=== PATIENT | female | born 1945 | race Caucasian/White ===

== ENCOUNTER 2017-05-14 14:14 | Day surgery (SDC) | payer OTHER, MEDICARE ==
[2017-05-14] MEDS ORDERED: LIDOCAINE 1% 2 ML INJ ONE (14:31)
[2017-05-14] MEDS ORDERED: ceFAZolin 2 GM/DEXTROSE 100 ML IV ONE (14:35)
[2017-05-14] MEDS ORDERED: LR 1,000 ML IV ONE (14:35)
[2017-05-14] MEDS ORDERED: LIDOCAINE 1% 2 ML INJ ID PRN (14:35)
[2017-05-14] MEDS ORDERED: BUPIVACAINE 0.5% 30 ML SDV ONE ×2 (15:45→15:55)
[2017-05-14] MEDS ORDERED: MIDAZOLAM 2 MG/2 ML VIAL IVP ONE (15:49)
--- NOTE | 2017-05-14 15:49 | PDHPUP ---
History & Physical Update H&P update statement: This history and physical update is based on an assessment of the patient which was completed after admission or registration (within 24 hours), but prior to the surgery/procedure. H&P update: H&P reviewed & patient examined, no change in patient's condition since H&P completed
--- NOTE | 2017-05-14 15:52 | PDANEPAE ---
ANE History of Present Illness 72 year old with bilateral bunions ANE Past Medical History - Cardiovascular History Hx Hypertension: No Hx Arrhythmias: No Hx Chest Pain: No Hx Coronary Artery / Peripheral Vascular Disease: No Hx CHF / Valvular Disease: No Hx Palpitations: No Cardiovascular History Comment: SLIGHT HEART MURMUR - ASYMPTOMATIC - Pulmonary History Hx COPD: No Hx Asthma/Reactive Airway Disease: No Hx Recent Upper Respiratory Infection: No Hx Oxygen in Use at Home: No Hx Sleep Apnea: No Sleep Apnea Screening Result - Last Documented: Positive Pulmonary History Comment: BRONCHITIS A FEW TIMES. PNEUMONIA IN TEENS - Neurologic History Hx Cerebrovascular Accident: No Hx Seizures: No Hx Dementia: No - Endocrine History Hx Diabetes: No - Renal History Hx Renal Disorders: No Renal History Comment: OCCAS UTIs - Liver History Hx Hepatic Disorders: No - Neurological & Psychiatric Hx Hx Neurological and Psychiatric Disorders: No - Cancer History Hx Cancer: No Cancer History Comment: BASAL CELL REMOVED - Congenital Disorder History Hx Congenital Disorders: No - GI History Hx Gastrointestinal Disorders: No - Other Health History Other Health History: NEG - Chronic Pain History Chronic Pain: Yes (UCHE FEET) - Surgical History Prior Surgeries: EYELIDS CORRECTED ANE Review of Systems Review of systems is: negative Review of Systems: - Exercise capacity METS (RN): 4 METS ANE Patient History - Allergies Allergies/Adverse Reactions: No Known Allergies Allergy (Unverified 05/08/17 12:50) - Home Medications Home Medications: Gabapentin 05/08/17 [Last Taken 05/13/17] Herbals/Supplements -Info Only 05/08/17 [Last Taken 05/13/17] Premarin Vaginal (*) 05/08/17 [Last Taken Unknown] Zyrtec 05/08/17 [Last Taken 05/13/17] - NPO status NPO Since - Liquids (Date): 05/13/17 NPO Since - Liquids (Time): 23:00 NPO Since - Solids (Date): 05/13/17 NPO Since - Solids (Time): 23:30 - Anes Hx Anes Hx: no prior problems - Smoking Hx Smoking Status: Never smoked - Alcohol Use Alcohol Use: Occasionally - Family Anes Hx Family Hx Anesthesia Complications: 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
[2017-05-14] MEDS ORDERED: PROPOFOL/EMULSION 500 MG/50 ML BOTTLE IV ONE ×2 (16:08→17:55)
[2017-05-14] MEDS ORDERED: fentaNYL 100 MCG/2 ML INJ ONE ×2 (16:08→17:55)
[2017-05-14] MEDS ORDERED: DEXAMETHASONE 10 MG/ML VIAL ONE (17:00)
[2017-05-14] MEDS ORDERED: ONDANSETRON 4 MG/2 ML VIAL IVP PRN ×2 (18:43→18:49)
[2017-05-14] MEDS ORDERED: ONDANSETRON DISINTEGRATING 4 MG TAB PO PRN (18:43)
[2017-05-14] MEDS ORDERED: OXYCODONE/APAP 5/325 TAB PO PRN (18:43)
[2017-05-14] MEDS ORDERED: HYDROCODONE/APAP 5/325 TAB PO PRN (18:49)
[2017-05-14] MEDS ORDERED: fentaNYL 100 MCG/2 ML INJ IVP PRN (18:49)
[2017-05-14] MEDS ORDERED: HYDROmorphONE/DILAUDID 1 MG/ML INJ IVP PRN (18:49)
[2017-05-14] MEDS ORDERED: NALOXONE HCL 0.4 MG/ML INJ IVP PRN (18:49)
--- NOTE | 2017-05-14 18:51 | POSTANESTH ---
Post Anesthetic Evaluation Cardiovascular Status: Normal, Stable Respiratory Status: Normal, Stable Level of Consciousness/Mental Status: Can Participate in Eval, Mildly Sleepy, Arousable Pain Control: Adequate, Prn Tx Ordered Nausea/Vomiting Control: Adequate, Prn Tx Ordered Complications Possibly Related to Anesthesia: None Noted
[2017-05-14 18:58] VITALS: TEMP 97.5
[2017-05-14 19:34] VITALS: BP 120/80; PULSE 64; RESP 14; O2SAT 95
--- NOTE | 2017-05-15 16:24 | GOP ---
[f rep st] OPERATIVE REPORT DATE OF OPERATION: 05/14/2017 SURGEON: Andrew Moura DPM ROUSTABOUT: None. ANESTHESIA: MAC with local, 30 mL 0.5% Marcaine plain, each foot. PREOPERATIVE DIAGNOSIS: 1. Hallux valgus bilaterally. 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 4. Interdigital neuroma, bilateral feet. 5. Dislocation, 2nd metatarsophalangeal joint, bilateral feet. 6. Metatarsalgia, 2nd metatarsal, bilateral feet. 7. Damage of flexor tendon complex, bilateral feet. 8. Transient synovitis, bilateral feet. POSTOPERATIVE DIAGNOSIS: 1. Hallux valgus bilaterally. 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 4. Interdigital neuroma, bilateral feet. 5. Dislocation, 2nd metatarsophalangeal joint, bilateral feet. 6. Metatarsalgia, 2nd metatarsal, bilateral feet. 7. Damage of flexor tendon complex, bilateral feet. 8. Transient synovitis, bilateral feet. PROCEDURE PERFORMED: 1. Bunionectomy, bilateral feet. 2. 1st metatarsal osteotomy with bone graft, bilateral feet. 3. Osteotomy of 1st proximal phalanx, bilateral feet. 4. Osteotomy of 2nd metatarsal, bilateral feet. 5. Open reduction of dislocation, 2nd metatarsophalangeal joint, bilateral feet. 6. Repair of flexor tendon, 2nd digit, bilateral feet. 7. Transfer of flexor tendon, 2nd digit, bilateral feet. 8. Extensor tendon lengthening, 2nd digit, bilateral feet. 9. Excision of interdigital neuroma, 3rd intermetatarsal space, left foot. 10. Arthrocentesis, bilateral feet. FINDINGS: Gross findings consistent with diagnosis. ESTIMATED BLOOD LOSS: Zero. DESCRIPTION OF PROCEDURE: After identification, the patient was brought to the operating room and pl aced on the operating table in the supine position. Following IV sedation, local anesthesia was obta ined around the patient's bilateral feet, utilizing a total of 60 mL of 0.5% Marcaine plain. The pat ient was scrubbed, prepped, and draped in the usual aseptic manner. Pneumatic ankle tourniquets were placed around the bilateral ankles using ample padding. Attention was first directed to the right foot, where a 5 cm linear longitudinal incision was made at the medial aspect of the 1st metatarsophalangeal joint. This incision was deepened within the subcu taneous tissue, with care being taken to identify and retract all vital neural and vascular structure s. Bleeders were ligated and cauterized as necessary. The incision was deepened to the level of the capsule, where a lenticular capsulorrhaphy was performed. The lenticular piece of capsule was excis ed and passed from the operative field. Capsular structures were reflected dorsally and plantarly, t hus exposing the 1st metatarsophalangeal joint at the operative site. A McGlamry elevator was insert ed from medial to lateral in the 1st metatarsophalangeal joint, which served as a lateral ligamentous release. Upon completion of this release, the hallux was noted to be more translatable into a media l and anatomic position. Attention was then directed to the 1st metatarsal, where a Z-shaped SCARF osteotomy was made from med ial to lateral in the 1st metatarsal head, neck, and shaft. Upon completion of this osapsgh-wqk-sjir ugh osteotomy, the capital fragment was translated laterally into a more rectus and anatomic position . After temporary fixation, two 2.5 headless Arthrex screws were driven obliquely across this osteot martha site to serve as stable fixation. Redundant medial bone shelf was excised, remodeled, and a port ion of this bone was reinserted into the osteotomy site to serve as a bone graft. All rough edges we re then smoothed with a bone bur. Position was evaluated, and the hallux was still noted to be in a lateral position. It was decided at this time to perform an Rene osteotomy in the 1st proximal phala nx. This medially based wedge osteotomy was performed in the base proximal aspect of the 1st proxima l phalangeal base. Upon completion of this osteotomy, the bone wedge was removed, the lateral cortex remained intact, and upon closure of this osteotomy side, the hallux was translated into a more medi al and rectus position on the 1st metatarsal. A 2.5 headless Arthrex screw was driven obliquely acro ss the osteotomy site to serve as stable fixation. Position was evaluated at this time and noted to be excellent; fixation is noted to be extremely stable and appropriate. This incision was flushed wi th normal sterile saline solution. The capsular structures were reapproximated by using 2-0 Vicryl, subcutaneous tissue reapproximated by using 3-0 Vicryl, skin reapproximated using 5-0 Vicryl in a run pedro subcuticular suture technique. Attention was then directed to the 2nd metatarsophalangeal joint of the right foot, were a 4 cm linea r longitudinal incision was made over the dorsal aspect of the 2nd metatarsophalangeal joint. This i ncision was deepened to the subcutaneous tissue, with care being taken to identify and retract all vi teodoro neural and vascular structures. Bleeders were ligated and cauterized as necessary. This incisio n was deepened to the level of the joint capsule, where a linear capsulotomy was performed. The caps ular structures were reflected medially and laterally, thus exposing the 2nd metatarsophalangeal join t at the operative site. A McGlamry elevator was then inserted from distal to proximal in the 2nd me tatarsophalangeal joint to serve as a soft tissue release. A Gwen metatarsal osteotomy was performed from dorsal-distal to plantar-proximal in the 2nd metatarsal head shaft in the head, neck, and shaft . Upon completion of this epkcxkr-qda-uqowhuh osteotomy, the capital fragment was shifted proximally , thus exposing exposure to the plantar aspect of the 2nd metatarsophalangeal joint. The 2nd metatarsophalangeal joint was explored at this time, and it was noted that an approximately 4 0% tear of the lateral aspect of the plantar plate is present. This rupture was completed, and flexo r tendons were evaluated. Partial tearing of the flexor tendons was noted. Flexor tendons are direc tly repaired with 2-0 Vicryl. The flexor tendon and plantar plate structure were then gathered with a suture-gathering instrument; 0 FiberWire was passed through the flexor tendons and plantar plate st ructures, which were gathered; FiberWire sutures passed through, crossing drill holes in the base of the 2nd proximal phalanx; sutures were tied, which have approximated the plantar plate structure and flexor tendon structure to the base of the proximal phalanx of the 2nd digit. This serves as a plant ar plate repair and a flexor tendon transfer. The 2nd metatarsal head was then brought back out to [facility], secured in a 1 to 2 mm shortened position with a 2.0 headless snap-off Arthrex screw. Fixatio n is noted to be stable at this time. Position of the 2nd toe is noted to be extremely stable at thi s time. The incision was then flushed with normal sterile saline solution. Capsular structures were reapproximated by using 2-0 Vicryl, subcutaneous tissue reapproximated with 3-0 Vicryl, skin reappro ximated using 5-0 Vicryl in a running subcuticular suture technique. Attention was then directed to the 4th intermetatarsal space of the right foot. A 3 cm linear longit udinal incision was made over this dorsal aspect of the 4th intermetatarsal space. This incision was deepened to the subcutaneous tissue, with care being taken to identify and retract all vital neural and vascular structures. Bleeders were ligated and cauterized as necessary. This 4th intermetatarsa l space was evaluated, and no nerve lesion or neuroma was found. There was a hypertrophic muscle bel ly located within this area, which seems to be impinging on soft tissue and bone structures. A porti on of this muscle belly was excised and passed from the operative field. Incision was flushed with n ormal sterile saline solution. Subcutaneous tissue reapproximated with 3-0 Vicryl and skin reapproxi mated using 5-0 Vicryl in a running subcuticular suture technique. These incisions were then dressed with Steri-Strips, Milton silk, 4 x 4 gauze, Webril, Saad, Emir bandage. The pneumatic ankle tourniqu et was then deflated. Attention was then directed to the left foot. On the left foot, an identical procedure was performed as was on the right. The only omission to thi s procedure was the excision of neuroma/redundant muscle belly in the 4th intermetatarsal space. The re is one addition to this procedure, and that is an excision of neuroma from the 3rd intermetatarsal space, left foot. Attention was directed to the dorsal aspect of the left foot, where a 3 cm linear longitudinal incision was made over the 3rd intermetatarsal space. This incision was deepened throu gh the subcutaneous tissue, with care being taken to identify and retract all vital neural and vascul ar structures. Bleeders were ligated and cauterized as necessary. Incision was deepened to the leve l of the intermetatarsal space, where an intermetatarsal neuroma was identified, resected, passed fro m the operative field, and will be sent to Pathology. No further irregular nerve of soft tissue is n oted within this intermetatarsal space. The space was then flushed with normal sterile saline soluti on. The subcutaneous tissues were reapproximated using 3-0 Vicryl, skin reapproximated using 5-0 Reynaldo ryl in a running subcuticular suture technique. At the conclusion of these procedures, 4 mg dexamethasone was injected into each foot at the 1st meta tarsophalangeal joint. The left foot was then dressed with Milton silk, 4 x 4 gauze, Webril, Saad, Ac e bandage. The patient was transported to the postoperative recovery area with vital signs stable an d vascular status intact to the foot bilaterally. The patient tolerated the procedure and anesthesia well. HEMOSTASIS: Bilateral pneumatic ankle tourniquet, inflated to 250 mmHg, for 63 minutes, right foot a nd 61 minutes, left foot. MATERIALS: 2.5 headless Arthrex screw x6, 2.0 snap-off Arthrex screw x2, Arthrex CPR kit x2. INJECTABLES: 8 mg dexamethasone, 4 in each foot. CONDITION: Stable. /[id number]/MODL
== END 2017-05-14 20:06 | disposition home or self-care (01) ==
LOC: FSGY 14:14
PROVIDERS: ATTEND Podiatrist
PROC: 0LR Tendons, Replacement (ICD-10-PCS; principal; 2017-05-14 15:30)
PROC: 0LR Tendons, Replacement (ICD-10-PCS; principal; 2017-05-14 15:30)
PROC: 0SBN0ZZ Excision of Left Metatarsal-Phalangeal Joint, Open Approach (ICD-10-PCS; principal; 2017-05-14 15:30)
PROC: 0LQW0ZZ Repair Left Foot Tendon, Open Approach (ICD-10-PCS; principal; 2017-05-14 15:30)
PROC: 0QBP0ZZ Excision of Left Metatarsal, Open Approach (ICD-10-PCS; principal; 2017-05-14 15:30)
PROC: 0SSM04Z Reposition Right Metatarsal-Phalangeal Joint with Internal Fixation Device, Open Approach (ICD-10-PCS; principal; 2017-05-14 15:30)
PROC: 0SSN04Z Reposition Left Metatarsal-Phalangeal Joint with Internal Fixation Device, Open Approach (ICD-10-PCS; principal; 2017-05-14 15:30)
PROC: 0QBN0ZZ Excision of Right Metatarsal, Open Approach (ICD-10-PCS; principal; 2017-05-14 15:30)
DX: M20.11 Hallux valgus (acquired), right foot (principal); M20.12 Hallux valgus (acquired), left foot; Q66.89 Other specified congenital deformities of feet; G57.83 Other specified mononeuropathies of bilateral lower limbs; S93.124A Dislocation of metatarsophalangeal joint of right lesser toe(s), initial encounter; S93.125A Dislocation of metatarsophalangeal joint of left lesser toe(s), initial encounter; M66.371 Spontaneous rupture of flexor tendons, right ankle and foot; M66.372 Spontaneous rupture of flexor tendons, left ankle and foot; M67.371 Transient synovitis, right ankle and foot; M67.372 Transient synovitis, left ankle and foot; M77.41 Metatarsalgia, right foot; M77.42 Metatarsalgia, left foot
CPT/HCPCS: 28080; 28202; 28210; 28295; 28296; 28645; C1769; C1713; J0690; J1100; J2250; J2704; J3010

== ENCOUNTER 2017-06-20 13:13 | Day surgery (SDC) | payer OTHER, MEDICARE ==
[~2017-06-20 13:13] MED LIST: ceFAZolin 2 GM/SWFI 2 GM/20 ML SYR IVP ONE
[2017-06-20] MEDS ORDERED: BUPIVACAINE 0.5% 30 ML SDV ONE ×2 (13:32→15:21)
[2017-06-20] MEDS ORDERED: POLYMYXIN B SULFATE 500,000 UNIT/10 ML SYR IRR ONE (13:33)
[2017-06-20] MEDS ORDERED: BACITRACIN 50,000 UNITS/10 ML SYR IRR ONE (13:33)
[2017-06-20] MEDS ORDERED: LIDOCAINE 1% 2 ML INJ ID PRN (13:50)
[2017-06-20] MEDS ORDERED: LR 1,000 ML IV ONE (13:50)
[2017-06-20] MEDS ORDERED: MIDAZOLAM 2 MG/2 ML VIAL IVP ONE (14:35)
--- NOTE | 2017-06-20 14:35 | PDANEPAE ---
ANE History of Present Illness Revision of 1st and 2d toe surgery ANE Past Medical History - Cardiovascular History Hx Hypertension: No Hx Arrhythmias: No Hx Chest Pain: No Hx Coronary Artery / Peripheral Vascular Disease: No Hx CHF / Valvular Disease: No Hx Palpitations: No Cardiovascular History Comment: SLIGHT HEART MURMUR - ASYMPTOMATIC - Pulmonary History Hx COPD: No Hx Asthma/Reactive Airway Disease: No Hx Recent Upper Respiratory Infection: No Hx Oxygen in Use at Home: No Hx Sleep Apnea: No Sleep Apnea Screening Result - Last Documented: Negative Pulmonary History Comment: BRONCHITIS A FEW TIMES. PNEUMONIA IN TEENS - Neurologic History Hx Cerebrovascular Accident: No Hx Seizures: No Hx Dementia: No - Endocrine History Hx Diabetes: No Hypothyroid: No Hyperthyroid: No Obesity: no - Renal History Hx Renal Disorders: No Renal History Comment: OCCAS UTIs - Liver History Hx Hepatic Disorders: No - Neurological & Psychiatric Hx Hx Neurological and Psychiatric Disorders: No - Cancer History Hx Cancer: No Cancer History Comment: BASAL CELL REMOVED - Congenital Disorder History Hx Congenital Disorders: No - GI History GERD: no Hx Gastrointestinal Disorders: No - Other Health History Other Health History: wears glasses - Chronic Pain History Chronic Pain: Yes (UCHE FEET) - Surgical History Prior Surgeries: 05/14/17 bilateral bunionectomy with Gradisik. EYELIDS CORRECTED ANE Review of Systems Review of Systems: - Exercise capacity METS (RN): 4 METS ANE Patient History - Allergies Allergies/Adverse Reactions: No Known Allergies Allergy (Verified 06/19/17 11:04) - Home Medications Home Medications: Gabapentin 05/08/17 [Last Taken 06/19/17 22:00] Herbals/Supplements -Info Only 05/08/17 [Last Taken 06/19/17] Premarin Vaginal (*) 05/08/17 [Last Taken 06/13/17] Zyrtec 05/08/17 [Last Taken 05/13/17] - NPO status NPO Since - Liquids (Date): 06/20/17 NPO Since - Liquids (Time): 07:30 NPO Since - Solids (Date): 06/20/17 NPO Since - Solids (Time): 05:45 - Smoking Hx Smoking Status: Never smoked - Family Anes Hx Family Hx Anesthesia Complications: 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
[2017-06-20] MEDS ORDERED: ceFAZolin 2 GM/SWFI 20 ML SYR IVP ONE (14:51)
[2017-06-20] MEDS ORDERED: PROPOFOL 200 MG/20 ML VIAL ONE ×3 (14:57→15:45)
[2017-06-20] MEDS ORDERED: fentaNYL 100 MCG/2 ML INJ ONE ×2 (14:57→16:35)
[2017-06-20] MEDS ORDERED: ACETAMINOPHEN 500 MG TAB PO PRN (16:10)
[2017-06-20] MEDS ORDERED: HYDROCODONE/APAP 5/325 TAB PO PRN (16:10)
[2017-06-20] MEDS ORDERED: OXYCODONE/APAP 5/325 TAB PO PRN ×2 (16:10→16:21)
[2017-06-20] MEDS ORDERED: NALOXONE HCL 0.4 MG/ML INJ IVP PRN (16:10)
[2017-06-20] MEDS ORDERED: ONDANSETRON DISINTEGRATING 4 MG TAB PO PRN (16:21)
[2017-06-20] MEDS ORDERED: ONDANSETRON 4 MG/2 ML VIAL IVP PRN (16:21)
[2017-06-20] MEDS ORDERED: OXYCODONE/APAP 5/325 TAB ONE (16:30)
[2017-06-20] MEDS: fentaNYL 100 MCG/2 ML INJ IVP PRN ×2 (16:38→16:55)
[2017-06-20 16:44] VITALS: TEMP 97.3
[2017-06-20 18:05] VITALS: BP 131/82; PULSE 75; RESP 16; O2SAT 96
--- NOTE | 2017-06-21 15:05 | GOP ---
[f rep st] OPERATIVE REPORT DATE OF OPERATION: 06/20/2017 SURGEON: Andrew Moura DPM [employer] TEACHER: None. ANESTHESIA: MAC with local, 30 mL 0.5% Marcaine plain. PREOPERATIVE DIAGNOSIS: 1. First metatarsophalangeal joint fracture/dislocation, left foot. 2. Second metatarsophalangeal joint fracture/dislocation, left foot. POSTOPERATIVE DIAGNOSIS: 1. First metatarsophalangeal joint fracture/dislocation, left foot. 2. Second metatarsophalangeal joint fracture/dislocation, left foot. PROCEDURE PERFORMED: 1. Open reduction internal fixation of 1st metatarsophalangeal joint dislocation, left foot. 2. Open reduction internal fixation 2nd metatarsophalangeal joint fracture/dislocation, left foot. FINDINGS: Consistent with diagnosis. ESTIMATED BLOOD LOSS: Zero. INDICATIONS: Patient underwent surgical repair of left foot bunion and 2nd metatarsophalangeal joint dislocation approximately 1 month ago. During the first 2 days postop, the patient believed she daren bbed this foot on the stairs while the foot was still numb. Because the foot was numb, she did not r ealize the extent of this injury; however, it became apparent at her first postoperative visit that s he suffered a fracture dislocation. DESCRIPTION OF PROCEDURE: After identification, the patient was brought in the operating room, place d on the operating table in a supine position. Following IV sedation, local anesthesia was obtained around the patient's left foot utilizing a total of 30 mL 0.5% Marcaine plain. Foot was then scrubbe d, prepped, and draped in the usual aseptic manner. Esmarch bandage was utilized to exsanguinate the patient's left foot. Pneumatic ankle tourniquet was then inflated. Attention was directed to the medial aspect of the left foot where a 5 cm linear longitudinal incisio n was made over the site of previous incision medial to the 1st metatarsophalangeal joint. This inci priscilla was deepened to the subcutaneous tissue with care being taken to identify and retract all vital neural and vascular structures. Incision was deepened to the level of the joint capsule where a line ar capsulotomy was performed thus exposing the 1st metatarsophalangeal joint and the entirety of the 1st metatarsal at the operative site. The bones are evaluated at this time and noted to be intact wi thout fracture. There has been a shift in the 1st metatarsal head into a slightly dorsally translate d position with the 1st proximal phalanx plantarly dislocated. The soft tissues were freed, and the joint was the relocated. Because of the scar tissue and the state of healing, the 1st metatarsophala ngeal joint does not stay relocated on its own; therefore, the decision was made to insert a 1.25 mm K-wire from distal to proximal through the great toe into the 1st metatarsal to serve as stable fixat ion of the 1st metatarsophalangeal joint. The K-wire was then cut and left external at the distal as pect of the great toe, and a Jergen ball was placed over the end of the K-wire. Position was noted t o be excellent at this time, and fixation is noted to be stable. The incision site was then flushed with normal sterile saline solution. The capsule and subcutaneous tissues were reapproximated using 2-0 Vicryl. Skin reapproximated with 5-0 Vicryl in a running subcuticular suture technique. This K- wire will be removed in the office postoperatively. Attention is directed to the 2nd metatarsophalangeal joint left foot where a 3 cm linear longitudinal incision was made over the dorsal aspect of the 2nd metatarsophalangeal joint reusing the old incisi on which is apparent. This incision is deepened to the subcutaneous tissue with care being taken to identify and retract all vital neural and vascular structures. Bleeders were ligated and cauterized as necessary. Incision was deepened to the level of the 2nd metatarsophalangeal joint capsule where a linear capsulotomy was performed. Capsular structures were reflected medially and laterally thus e xposing the 2nd metatarsophalangeal joint out of the operative site. It is noted that the osteotomy site at the 2nd metatarsal bone has translated, and the capitol fragment has retracted proximally. T he hardware is no longer stable. The single 2.0 screw was removed and passed from the operative fiel d. The 2nd metatarsal was then brought back out to appropriate length and fixated with 2 x 2.0 Arthr ex snap-off screws. At this time, position is noted to be excellent, and fixation is noted to be ext remely stable. Incision site was then flushed with normal sterile saline solution. Capsular structu res and subcutaneous tissues reapproximated utilizing 3-0 Vicryl, and the skin reapproximated utilyumikoi ng 5-0 Vicryl in a running subcuticular suture technique. The incision sites were then dressed with Steri-Strips, Milton silk, 4 x 4 gauze, Webril, Saad, Emir bandage. Patient is transported to postoper ative recovery with vital signs stable and vascular status intact to the left foot. Patient tolerate d procedure and anesthesia well. HEMOSTASIS: Left pneumatic ankle tourniquet inflated to 250 mmHg for 60 minutes. MATERIALS: 2.0 Arthrex snap-off screw x2, 1.25 K-wire x1. INJECTABLES: None. CONDITION: Stable. /[id number]/MODL
== END 2017-06-20 17:50 | disposition home or self-care (01) ==
LOC: FSGY 13:13
PROVIDERS: ATTEND Podiatrist
DX: S92.312A Displaced fracture of first metatarsal bone, left foot, initial encounter for closed fracture (principal); S92.322A Displaced fracture of second metatarsal bone, left foot, initial encounter for closed fracture; S93.315A Dislocation of tarsal joint of left foot, initial encounter; R01.1 Cardiac murmur, unspecified
CPT/HCPCS: C1713; J0690; J2250; J2704; J3010